=== PATIENT | female | born 1990 | race Caucasian/White ===

== ENCOUNTER 2025-02-14 11:05 | Outpatient (REF) | payer OTHER, SELFPAY ==
[2025-02-14 13:17] LABS: MANUAL DIFF FLAG NO
[2025-02-14 13:44] LABS: Hematocrit 36.7 % (37.0-47.0); Hemoglobin 12.0 g/dl (12.0-16.0); Imm Gran Abs Auto 0.01 X10*3/uL (0.00-0.03); Imm Gran Pct Auto 0.2 % (0.0-0.4); Lymphocytes Absolute Auto 1.5 X10*3/uL (1.2-4.9); Mean Corpuscular HGB Conc 32.7 g/dl (31.0-35.0); Mean Corpuscular Hemoglobin 26.9 pg (27.0-33.0); Mean Corpuscular Volume 82.3 fL (80.0-98.0); NRBC Abs Auto 0.000 X10*3/uL (0.0-0.012); NRBC Pct Auto 0.0 /100WBC (0.0-0.2); Platelet Count 207 X10*3/uL (160-400); Red Blood Count 4.46 X10*6/uL (4.20-5.50); White Blood Count 5.4 X10*3/uL (4.8-10.8)
[2025-02-14 14:06] LABS: Alanine Aminotransferase 17 U/L (0-31); Albumin Level 4.6 g/dL (3.5-5.0); Alkaline Phosphatase 60 U/L (39-117); Anion Gap 12 (12-20); Aspartate Amino Transferase 23 U/L (5-31); Blood Urea Nitrogen 15 mg/dL (9-16); Calcium 8.9 mg/dL (8.4-10.2); Carbon Dioxide 27 mmol/L (22-29); Chloride 105 mmol/L (96-108); Estimated Glomerular Filt Rate > 60; Ferritin 16 ng/mL (10-122); Iron 93 mcg/dL (30-160); Percent Iron Saturation 36 % (15-50); Potassium 4.2 mmol/L (3.3-5.1); Sodium 140 mmol/L (135-145); Total Iron Binding Capacity 260 mcg/dL (228-428); Total Protein 6.9 g/dL (6.5-8.0); Unsaturated Iron Binding 167 ug/dL
[2025-02-14 14:27] LABS: Folate 14.6 ng/mL (> or = 4.0); Vitamin B12 1155 pg/mL (200-900)
--- OUTSIDE RECORDS SUMMARY | 2025-02-14 14:37 | XMS_ITS | Clinical Summary ---
Author Organization [facility] Address [address] [place] [address] Care Team Providers Care Education Assistant Name Role Phone Unavailable Primary Care Provider Unavailabl e Allergies No known active allergies Medications Medication Sig Dispensed Refills Start Date End Date Status LORazepam (ATIVAN) 0.5 MG tablet Take 0.5 mg by mouth every 6 (six) hours as needed. 0 Active PARAGARD INTRAUTERINE COPPER IUD by Intrauterine route. 0 Active CLEOCIN [address] 100 mg vaginally every night at bedtime. 0 01/30/2015 Active NORETHINDRONE PO Take by mouth. 0 Acti ve LORazepam (ATIVAN) 0.5 MG tablet Take 1 tablet (0.5 mg total) by mouth every 6 (six) hours as needed. Take 1 tablet 30 to 45 minutes prior to anticipated procedure. 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 Breast signs and symptoms 07/15/2023 Dense breasts 07/15/2023 Family history of breast cancer 07/15/2023 Severe dysplasia of cervix 01/02/2015 Family History Medical History Relation Name Comments Lymphoma Maternal Grandmother Non-Hod gkins Breast cancer Paternal Grandmother Relation Name Status Comments Maternal Grandmother Paternal Grandmother Social History Tobacco Use Types Packs/Day Years Used Date Smoking Tobacco: Former Cigarettes Smokeless Tobacco: Never Tobacco Cessation:Counseling Given: Not Answered Alcohol Use Standard Drinks/Week Comments Never 0 (1 standard drink = 0.6 oz pur e alcohol) Sex and Gender Information Value Date Recorded Sex Assigned at Not on file Gender Identity Not on file Sexual Orientation Not on file Job Start Date Occupation Industry Not on file Not on file Not on file Last Filed Vital Signs Vital Sign Reading Time Taken Comments Blood Pressure 123/66 10/16/2023 1:20 PM EDT Pulse 77 10/16/2023 1:20 PM EDT Temperature 36.1 C (97 F) 10/16/2023 1:20 PM EDT Respiratory Rate 17 02/06/2015 10:00 AM EST Oxygen Saturation 100% 10/16/2023 1:20 PM EDT Inhaled Oxygen Concentration - - Weight 55.8 kg (123 lb) 10/16/2023 1:20 PM EDT Height 154.9 cm (5' 1 ) 10/16/2023 1:20 PM EDT Body Mass Index 23.24 10/16/2023 1:20 PM EDT Plan of Treatment Health Maintenance Due Date Last Done Comments Hepatitis C Screening 1990 Pneumococcal Vaccine (1 of 2 - PCV) 1996 Depression Screening 2002 DTap / Tdap / Td (4 - Tdap) 03/01/200602/14, 01/19/2004, 11/05/1999, Additional history exists Preventative Health Evaluation 2008 Cervical Cancer Screening (Pap Smear) 06/14/2018 06/15/2015 COVID-19 Vaccine (2 - Pfizer risk series) 12/31/2021 12/10/2021 Influenza Vaccine (#1) 2024 3, 01/27/2022, 12/25/2020, Additional history exists Hepatitis B Vaccines Completed 01/19/2004, 06/17/2003, 11/11/2002 RSV Ped < 20 months Aged Out No longe r eligible based on patient's age to complete this topic Medical Devices Implanted Type Area Contact Lens Assistant Device Identifier Shelf Expiration Date Model / Serial / Lot Cellulose Surgicel 14x2in Absorbable Hemostatic Agent - [id number] - [id number] Implanted:Qty : 1 on 02/06/2015 [place] [facility] [facility] Hemostatic Agent N/A: Cervix [employer] 06/15/20191950 / 1950 / [id number]
--- OUTSIDE RECORDS SUMMARY | 2025-02-14 14:37 | XMS_ITS | Clinical Summary ---
Author Organization [facility] Address [address] [place] [phone] Phone Care Team Providers Care Parachute Officer Name Role Phone Orlin Sweeney Primary Care Provider [phone] Allergies No known active allergies Medications NORETHINDRONE, CONTRACEPTIVE, ORAL Take by mouth. Activ e clindamycin (Cleocin) [address] 100 mg vaginally every night at bedtime. Active copper (ParaGard T 380A) 380 square mm IUD by Intrauterine route. Active LORazepam (ATIVAN) 0.5 mg tablet Take 1 tablet (0.5 mg total) by mouth every 6 (six) hours as needed. Take 1 tablet 30 to 45 minutes prior to anticipated procedure. Active Active Problems Problem Noted Date Diagnosed Date Family history of genetic disease 11/04/2024 Family history of breast cancer 11/04/2024 Bilateral breast lump 07/15/2023 Persistent nodularity of breast 07/15/2023 Breast signs and symptoms 07/15/2023 Dense breasts 07/15/2023 Severe dysplasia of cervix 01/02/2015 Encounters Date Type Department Care Team Description 12/09/2024 Telephone [facility] Hematology Oncology Genetics [address] [place] [phone] Yvette Scales 11/24/2024 11:30 AM EDT Clinical Support [facility]etics [address] [place] [phone] Yvette Scales Family history of breast cancer; Family history of genetic disease from Last 3 Months Immunizations Immunization Administration Dates Next Due [facility] (ages 12 & older) ELENA S-CoV-2 COVID-19, mRNA, LNP-S, nilam-sucrose, preservative free 12/10/2021 Surgical History Surgery Date Site/Laterality Comments INDUCED PROCEDURE:INDUCED ;COMMENT:x 2 COLPOSCOPY 11/29 PROCEDURE:COLPOSCOPY OTHER SURGICAL HISTORY 2011 PROCEDURE:IUD placement WISDOM TOOTH EXTRACTION PROCEDURE:WISDOM TOOTH EXTRACTION CERVICAL BIOPSY 02/06/2015 N/A PROCEDURE:CERVICAL BIOPSY;COMMENT:Procedure: BIOPSY CERVICAL WITH LOOP ELECTRODE EXCISION; Surgeon: Celine Diane MD; Location: [facility]; Service: Gynecology; Laterality: N/A; Medical History Medical History Date Comments Anxiety DX:Anxiety DX:;COMM ENT:x 2: 2008; 2011 IUD contraception DX:IUD contrac eption;COMMENT:Paraguard x 2 yrs HGSIL (high grade squamous intraepithelial dysplasia) DX:HGSIL (high grade squamo us intraepithelial dysplasia) HPV test positive DX:HPV test po sitive H/O colposcopy with cervical biopsy 11/03/14 DX:H/O colposcopy with cervical biopsy;COMMENT:Dr. 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 Abnormal Pap smear of cervix DX: Abnormal Pap smear of cervix History of cardiac murmur as a child DX:History of cardiac murmur as a child Eczema DX:Eczema;COMMEN T: mostly resolved per pt Family History Medical History Relation Name Comments Lymphoma Maternal Grandmother Non-Hod gkins Breast cancer Mother Breast cancer Paternal Grandmother Relation Name Status Comments Maternal Grandmother Mother Paternal Grandmother Social History Tobacco Use Types Packs/Day Years Used Date Smoking Tobacco: Former Smokeless Tobacco: Never Alcohol Use Standard Drinks/Week Comments Never 0 (1 standard drink = 0.6 oz pur e alcohol) Comments No Sex and Gender Information Value Date Recorded Sex Assigned at Female 05/05/2024 8:47 AM EST Legal Sex Female 7:36 AM EST Gender Identity Female 05/05/2024 8:47 AM EST Sexual Orientation Choose not to disclose 2024 8:47 AM EST Obstetrics History Para Term AB IAB SAB Ectopic Multiple Livin g Live Births 0 0 0 Last Filed Vital Signs Vital Sign Reading Time Taken Comments Blood Pressure 121/76 11/04/2024 8:54 AM EDT Pulse 84 11/04/2024 8:54 AM EDT Temperature 36.7 C (98 F) 11/04/2024 8:54 AM EDT Respiratory Rate - - Oxygen Saturation 100% 11/04/2024 8:54 AM EDT Inhaled Oxygen Concentration - - Weight 55.8 kg (123 lb) 11/04/2024 8:54 AM EDT Height 154.9 cm (5' 1 ) 11/04/2024 8:54 AM EDT Body Mass Index 23.24 11/04/2024 8:54 AM EDT Plan of Treatment Upcoming Encounters Date Type Department Care Team (Late st Contact Info) Description 05/19/2025 8:00 AM EST Appointment [address] [phone] 05/19/2025 8:30 AM EST Appointment [address] [phone] 05/19/2025 9:40 AM EST [facility] [address] [place] [phone] Cisco Rivera MD [address] [place] [phone] Health Maintenance Due Date Last Done Comments DTaP,Tdap,and Td Vaccines (1 - Tdap) 2009 Hepatitis B Vaccines (1 of 3 - 19+ 3-dose series) 2009 HPV Vaccines (1 - 3-dose SCD M series) 2017 Cervical Cancer Screening: P ap Smear 06/14/2018 06/15/2015 COVID-19 Vaccine (2 - Pfizer risk series) 12/31/2021 12/10/2021 HIV Screening 10/14/2023 Hepatitis C Screening 10/14/2023 Social Influencers of Health Screening 10/14/2023 Depression Screening 03/17/2024 Influenza Vaccine (#1) 2024 1, 12/31/2019 RSV Immunization Adult Patients (1 - 1-dose 75+ series) 2065 HIB Vaccines Aged Out No longer eligi ble based on patient's age to complete this topic Hepatitis A Vaccines Aged Out No long er eligible based on patient's age to complete this topic IPV Vaccines Aged Out No longer eligi ble based on patient's age to complete this topic MMR Vaccines Aged Out No longer eligi ble based on patient's age to complete this topic Meningococcal ACWY Vaccine Aged Out N o longer eligible based on patient's age to complete this topic Meningococcal B Vaccine Aged Out No l onger eligible based on patient's age to complete this topic Pneumococcal Vaccine: Pediatrics (0 to 5 Years) and At-Risk Patients (6 to 49 Years) Aged Out No longer eligible b ased on patient's age to complete this topic RSV Immunization Patients Under 20 months Aged Out No longer eligible b ased on patient's age to complete this topic Varicella Vaccines Aged Out No longer eligible based on patient's age to complete this topic Procedures Procedure Name Priority Date/Time Associated Diagnosis Comments PAP SMEAR Routine 06/15/2015 from Last 3 Months or Most Recently Relevant to Health Maintenance Results * Pap Smear (06/15/2015) Pap smear no interpretation abstracted Historical Provider HEALTH MAINTENANCE Final Result from Last 3 Months or Most Recently Relevant to Health Maintenance Insurance [employer] Care Teams Parachute Officer Relationship Specialty Start Date End Date Orlin Sweeney DO [address] [place] [address] PCP - General Family Medicine 05/05/24
--- OUTSIDE RECORDS SUMMARY | 2025-02-14 14:37 | XMS_ITS | Clinical Summary ---
Author Organization [facility] Address [address] [place] [id number] Care Team Providers Care Chalker Soles Name Role Phone Orlin Sweeney Primary Care Provider [phone] Allergies No known active allergies Medications NON FORMULARY Evening Prim Carrie oil Active cyanocobalamin (vitamin B-12) 50 mcg tablet Take 50 mcg by mouth in the morning. Active cholecalciferol, vitamin D3, (cholecalciferol ) 25 mcg (1,000 unit) tablet Take 1,000 Units by mouth in the morning. Active magnesium gluconate 30 mg (550 mg) tablet Take by mouth daily. Active LORazepam (ATIVAN) 0.5 mg tablet Take 0.5 mg by mouth every 6 (six) hours as needed for anxiety. Active NON FORMULARY as needed. CBD A ctive MULTIVITAMIN ORAL Take by mouth daily. Active copper (ParaGard T 380A) intrauterine device intrauterine device by Intrauterine route. Active nicotine, polacrilex, 2 mg mini lozenge Apply to cheek 3 (three) times a day. Active ibuprofen 600 mg tablet Take 1 tablet (600 mg total) by mouth every 6 (six) hours as needed for mild pain (1-3) or moderate pain (4-7) for up to 60 doses. Please do not take on an empty stomach. 30 tablet 1 5 Active acetaminophen (Tylenol Extra Strength) 500 mg tablet Take 2 tablets (1,000 mg total) by mouth every 6 (six) hours as needed for mild pain (1-3) or moderate pain (4-7) for up to 30 doses. 30 tablet 5 Active Active Problems Problem Noted Date Diagnosed Date Pelvic pain in female 02/24/2024 Family History Medical History Relation Comments Breast cancer Paternal Grandmother Colon cancer Neg Hx Ovarian cancer Neg Hx Uterine cancer Neg Hx Relation Status Comments Paternal Grandmother Social History Tobacco Use Types Packs/Day Years Used Date Smoking Tobacco: Former Cigarettes 0.5 10 Q uit: 04/12/2020 Smokeless Tobacco: Never Alcohol Use Standard Drinks/Week Comments Not Currently 0 (1 standard drink = 0.6 oz pur e alcohol) Comments No Sex and Gender Information Value Date Recorded Sex Assigned at Not on file Legal Sex Female 9:12 AM EDT Gender Identity Not on file Sexual Orientation Not on file Last Filed Vital Signs Vital Sign Reading Time Taken Comments Blood Pressure 113/76 07/16/2024 10:08 AM EDT Pulse 76 07/16/2024 10:08 AM EDT Temperature 36.6 C (97.8 F) 07/07/2024 12:22 PM EDT Respiratory Rate 18 07/07/2024 1:07 PM EDT Oxygen Saturation 98% 07/07/2024 1:07 PM EDT Inhaled Oxygen Concentration - - Weight 55.3 kg (122 lb) 07/16/2024 10:08 AM EDT Height 154.9 cm (5' 1 ) 06/22/2024 8:55 AM EDT Body Mass Index 23.05 06/22/2024 8:55 AM EDT Plan of Treatment Health Maintenance Due Date Last Done Comments HIV Screening 1990 Hepatitis C Screening 2008 Pap Smear 09/30/2011 Cervical Cancer Screening 2020 HPV/Cotest 2020 COVID-19 Vaccine ( season) 2024 12/10/2021, 01/18/2021, 07/08/2020, Additional history exists Influenza Vaccine (#1) 2024 , 12/05/2022, 01/27/2022, Additional history exists DTaP,Tdap,and Td Vaccines (6 - Td or Tdap) 04/20/2029 04/20/2019, 02/28/2006, 01/19/2004, Additional history exists Zoster Vaccines (1 of 2) 2040 MMR Vaccines Completed 06/17/2003, 11/11/2002 Hepatitis B Vaccines Completed 01/19/2004, 06/17/2003, 11/11/2002 HPV Vaccines Completed 05/04/2015, 12/16, 11/03/2014 Hepatitis A Vaccines Aged Out No long er eligible based on patient's age to complete this topic Meningococcal Vaccine Aged Out No cristian matt eligible based on patient's age to complete this topic Pneumococcal Vaccine: At-Risk and Pediatric Patients (0 to 49 Years) Aged Out No longer eligi ble based on patient's age to complete this topic Insurance [employer] OPEN ACCESS Advance Directives For more information, please contact: [phone] Documents on File Type Date Recorded Patient Director Of Conservation Expl anation Advance Directives 07/12/2024 3:13 PM Care Teams Chalker Soles Relationship Specialty Start Date End Date [facility]lin Sweeney [facility] [place] [address] PCP - General 11/26/23
--- OUTSIDE RECORDS SUMMARY | 2025-02-14 14:37 | XMS_ITS ---
Author Name [facility] Organization Unknown Results Test Name/Text Value Interpretation Date Range Source BETA-HCG, QUANTITATIVE, SERUM <2.0 IU/L Normal 06/22/2024 [facility] HEMATOCRIT 41.6 % Normal 06/22/2024 35 - 47 [facility] MCH 28.0 pg Normal 06/22/2024 26 - 34 [facility] HEMOGLOBIN 13.5 g/dL Normal 06/22/2024 12 - 16 [facility] PLATELET COUNT 219.0 10*3/uL Normal 06/22/2024 150 - 440 [facility] RBC DISTRIBUTION WIDTH 13.2 % Normal 06/22/2024 11.6 - 14.8 [facility] MCV 86.3 fL Normal 06/22/2024 80 - 100 [facility] MPV 10.2 fL Normal 06/22/2024 9.4 - 12.4 [facility] MCHC 32.5 g/dL Normal 06/22/2024 32 - 36 [facility] AUTO NRBC % 0.0 % Normal 06/22/2024 0 - 0 [facility] RED CELL COUNT 4.82 10*6/ L Normal 06/22/2024 3.8 - 5.2 [facility] WHITE CELL COUNT 4.4 10*3/uL Normal 06/22/2024 3.6 - 11 [facility] History of Medication Use Medication Directions Dispensed Refills Start Date End Date Stat LORazepam (ATIVAN) 0.5 MG tablet Take 1 tablet (0.5 mg total) by mouth every 6 (six) hours as needed. Take 1 tablet 30 to 45 minutes prior to anticipated procedure. 07/18/2023 active CLEOCIN [address] 100 mg vaginally every night at bedtime. 01/30/2015 active cholecalciferol, vitamin D3, (cholecalciferol) 25 mcg (1,000 unit) tablet Take 1,000 Units by mouth in the morning. active clindamycin (Cleocin) [address] 100 mg vaginally every night at bedtime. active copper (ParaGard T 380A) 380 square mm IUD by Intrauterine route. active cyanocobalamin (vitamin B-12) 50 mcg tablet Take 50 mcg by mouth in the morning. active LORazepam (ATIVAN) 0.5 mg tablet Take 1 tablet (0.5 mg total) by mouth every 6 (six) hours as needed. Take 1 tablet 30 to 45 minutes prior to anticipated procedure. active LORazepam (ATIVAN) 0.5 mg tablet Take 0.5 mg by mouth every 6 (six) hours as needed for anxiety. active magnesium gluconate 30 mg (550 mg) tablet Take by mouth. active No known medications No known medications active NON FORMULARY CBD active NORETHINDRONE PO Take by mouth. active NORETHINDRONE, CONTRACEPTIVE, ORAL Take by mouth. a ctive PARAGARD INTRAUTERINE COPPER IUD by Intrauterine route. active Problems Problem Status Onset Date Problem Type Date of Resolution Source Persistent nodularity of breast active 2023-07-15 ProblemAct [facility] Family history of genetic disease active 2024-11-04 ProblemAct [facility] Bilateral breast lump active 2023-07-15 ProblemAct [facility] Family history of breast cancer active 2024-11-04 ProblemAct [facility] Dense breasts active 2023-07-15 ProblemAct [facility] Breast signs and symptoms active 2023-07-15 ProblemAct [facility] Severe dysplasia of cervix active 2015-01-02 ProblemAct [facility] Family history of breast cancer active 2023-07-15 ProblemAct [facility] Visit for screening mammogram active EncounterDiagnosisAct [facility] Pelvic pain in female active 2024-02-24 ProblemAct [facility] Immunizations Vaccine Date Source Lot Number Status [employer] (ages 12 & older) ELENA S-CoV-2 COVID-19, mRNA, LNP-S, nilam-sucrose, preservative free 12/10/2021 [facility] UNK completed [employer] (ages 12 & older) ELENA S-CoV-2 COVID-19, mRNA, LNP-S, nilam-sucrose, preservative free 12/10/2021 [facility] UNK completed Encounters Encounter Type Encounter Reason Primary Diagnosis Location Date Ambulatory Genetic Evaluation Family histor y of malignant neoplasm of breast [facility] 11/24/2024 Ambulatory Follow-up Family history o f malignant neoplasm of breast [facility] 11/04/2024 Ambulatory Pelvic and perineal pain Pelvic and perineal pain [facility]24 Ambulatory Pelvic and perineal pain Pelvic and perineal pain [facility] 06/22/2024 Ambulatory Pelvic and perineal pain Pelvic and perineal pain [facility] 06/22/2024 Ambulatory Follow-up Dense breasts, unspecified [facility] 05/06/2024 Ambulatory Dense breasts, unspecified Dense breasts, unspecified [facility] 05/06/2024 Ambulatory Encounter for screening mammogram for malignant neoplasm of breast Encounter for screening mammogram for malignant neoplasm of breast [facility] 05/06/2024 Ambulatory Pelvic and perineal pain Pelvic and perineal pain [facility] 02/24/2024 Ambulatory Pelvic and perineal pain Pelvic and perineal pain [facility] 02/24/2024 Ambulatory Dense breasts, unspecified Dense breasts, unspecified [facility] 10/16/2023 Ambulatory Unspecified lump in unspecified breast Unspecified lump in unspecified breast [facility] 07/15/2023 Care Team Organization Name Specialty Phone Email Start Date End Da te [facility] 05/26/2024 [facility] [place]/06/2024 [facility] 024 [facility] 4 [facility]
== END 2025-02-14 11:06 | disposition home or self-care (01) ==
LOC: HO.MANLDS 11:05
PROVIDERS: Visit Provider Internal Medicine
DX: Z13.0 Encounter for screening for diseases of the blood and blood-forming organs and certain disorders involving the immune mechanism (principal); E55.9 Vitamin D deficiency, unspecified
CPT/HCPCS: 36415; 80053; 82607; 82728; 82746; 83540; 85025